=== PATIENT | female | born 1990 | race Caucasian/White ===

== ENCOUNTER 2018-12-15 15:32 | Emergency (ER) | payer OTHER, SELFPAY ==
[~2018-12-15] VITALS: Ht 162.6 cm; Wt 72.6 kg
--- NOTE | 2018-12-15 16:03 | PHYS DOC ---
Past Medical History Past Medical History: Asthma, Hypertension (SHAYNE SIMS MD) Past Surgical History: Tonsillectomy, Other Additional Past Surgical Histo: ABD SX, R ARM SX (SHAYNE SIMS MD) Alcohol Use: None Drug Use: None (SHAYNE SIMS MD) Adult General Chief Complaint Chief Complaint: ABDOMINAL PAIN IN [facility] HPI Patient is a 28-year-old female, 2, para 1, proximally 14 weeks gestation, who presents to the emergency department as a transfer from the emergency department at [facility]. She states the past 2 days, she has been having developing right lower quadrant abdominal pain, worse with certain movements. She has had nausea, but this has preceded the onset of her pain, and might be associated with . She has not had any vomiting, diarrhea, vaginal bleeding, discharge, or urinary symptoms. She initially went to the emergency department [facility], and underwent evaluation which included CBC and chemistry values, which have been reviewed and are relatively unremarkable. She did have a urinalysis which showed a small amount of leukocytes, but likely related to contamination. She had a pelvic ultrasound, which has been reviewed as well. Because of the patient's diffuse right lower abdominal tenderness to palpation, the remaining concern for appendicitis and the patient was transferred to this facility for evaluation with MRI. (SHAYNE SIMS MD) Review of Systems Review of Systems Constitutional: Denies fever or chills [] Respiratory: Denies cough or shortness of breath [] Cardiovascular: The patient denies any shortness of breath, chest pain, palpitations, or orthopnea[] GI: No additional information not addressed in HPI [] : Denies dysuria or hematuria [] Musculoskeletal: Denies back pain or joint pain [] Integument: Denies rash or skin lesions [] (SHAYNE SIMS MD) Allergies Allergies Allergies Coded Allergies Type Severity Reaction Last Updated Verified Penicillins Allergy Unknown 06/18/16 Yes latex Allergy Unknown 06/18/16 Yes (CASI ARGUETA DO) Physical Exam Physical Exam PHYSICAL EXAM: CONSTITUTIONAL: Well developed, well nourished HEAD: normocephalic, atraumatic EENT: PERRL, EOMI. Conjunctivae normal color, sclerae non-icteric; moist mucous membranes. NECK: Supple, non-tender; no meningismus. LUNGS: Lungs CTA, breathing even and unlabored. Normal air movement. HEART: Regular rate and rhythm, no murmur CHEST: No deformity; non-tender ABDOMEN: The abdomen is soft, is tenderness to palpation to the entire right lower quarter of the abdomen, most prominently in the right suprapubic and midline pelvic area, and somewhat superior and medial to McBurney's point as well. There is no rebound or guarding. The remainder of the abdomen is soft and non-tender, no masses or bruits. EXTREM: Normal ROM; no deformity, no calf tenderness. Normal pulses palpable in all extremities. There is no pedal edema. SKIN: No rash; no diaphoresis NEURO: Alert; normal speech and cognition; CN's grossly intact; strength grossly intact without focal deficit. BACK: No CVA TTP. (SHAYNE SIMS MD) Current Patient Data Vital Signs Vital Signs Date Time Temp Pulse Resp B/P (MAP) Pulse Ox O2 Delivery O2 Flow Rate FiO2 12/15/18 17:30 74 16 118/76 (90) 100 Room Air 12/15/18 15:33 98.0 98.0 (CASI ARGUETA DO) EKG EKG [] (SHAYNE SIMS MD) Radiology/Procedures Radiology/Procedures [] (SHAYNE SIMS MD) Impressions: PROCEDURE: ABDOMEN WO CONTRAST MRI study of the abdomen without contrast Clinical indications: Right lower quadrant pain for 3 days. Patient is 20 weeks . Possible appendicitis. TECHNIQUE: T2 weighted sequences were performed with and without fat saturation in the coronal and axial planes. FINDINGS: Intrauterine is seen. This study does not evaluate for anomalies. Urinary bladder wall is smooth. There is a small 2.1 cm corpus pseudocyst of the left ovary just posterior to the uterus. The right ovary is not enlarged. No free fluid is seen within the cul-de-sac or within the pelvis or abdomen. The appendix is not readily identified but no swollen thickened appendix or mesenteric edema or wall thickening of the base of cecum is seen within the right lower quadrant. The terminal ileum is unremarkable. Bilateral symmetric ovarian veins are seen. The liver and spleen and pancreas are not completely seen in this study. The gallbladder is not distended. No hydronephrosis of either kidney is seen. IMPRESSION: There are no MRI findings indicative of appendicitis. 2.1 cm corpus luteum cyst of the left ovary. Electronically signed by: Trung Montano MD (12/15/2018 5:12 PM) [id number] (CASI ARGUETA DO) Course & Med Decision Making Course & Med Decision Making Pertinent Labs and Imaging studies reviewed. (See chart for details) [] (SHAYNE SIMS MD) Course & Med Decision Making Awaiting MRI results. Care transferred from Dr. Liu at shift change. MRI does not show a radiologic signs of appendicitis. I discussed results and plan of care with patient. Patient is comfortable with going home and following up with PCP. Discussed results and plan of care with patient. Patient is instructed to follow up with PCP in one to 2 days. Appropriate discharge instructions given to patient to return to the ED or to seek immediate medical evaluation. (CASI ARGUETA DO) Dragon Disclaimer Dragon Disclaimer This electronic medical record was generated, in whole or in part, using a voice recognition dictation system. (SHAYNE SIMS MD) Departure Departure Referrals: ANGELITO KNOWLES MD (PCP) SHAYNE SIMS MD December 15, 2018 16:03 CASI ARGUETA DO December 15, 2018 17:47
--- NOTE | 2018-12-15 17:15 | RAD ---
MRI study of the abdomen without contrast Clinical indications: Right lower quadrant pain for 3 days. Patient is 20 weeks . Possible appendicitis. TECHNIQUE: T2 weighted sequences were performed with and without fat saturation in the coronal and axial planes. FINDINGS: Intrauterine is seen. This study does not evaluate for anomalies. Urinary bladder wall is smooth. There is a small 2.1 cm corpus pseudocyst of the left ovary just posterior to the uterus. The right ovary is not enlarged. No free fluid is seen within the cul-de-sac or within the pelvis or abdomen. The appendix is not readily identified but no swollen thickened appendix or mesenteric edema or wall thickening of the base of cecum is seen within the right lower quadrant. The terminal ileum is unremarkable. Bilateral symmetric ovarian veins are seen. The liver and spleen and pancreas are not completely seen in this study. The gallbladder is not distended. No hydronephrosis of either kidney is seen. IMPRESSION: There are no MRI findings indicative of appendicitis. 2.1 cm corpus luteum cyst of the left ovary. Electronically signed by: Trung Montano MD (12/15/2018 5:12 PM) [id number]
[2018-12-15 17:30] VITALS: BP 118/76
== END 2018-12-15 17:59 | disposition home or self-care (01) ==
LOC: ER 15:32
DX: O34.82 Maternal care for other abnormalities of pelvic organs, second trimester (principal); N83.12 Corpus luteum cyst of left ovary; O99.512 Diseases of the respiratory system complicating pregnancy, second trimester; J45.909 Unspecified asthma, uncomplicated; O16.2 Unspecified maternal hypertension, second trimester; Z88.0 Allergy status to penicillin; Z91.040 Latex allergy status; Z3A.14 14 weeks gestation of pregnancy
CPT/HCPCS: 74181; 99284-25